=== PATIENT | female | born 1955 | race Caucasian/White ===

== ENCOUNTER 2023-05-31 07:50 | Day surgery (SDC) | payer MEDICARE, MEDICAID ==
[~2023-05-31] VITALS: Ht 165.1 cm; Wt 74.8 kg
[2023-05-31] MEDS ORDERED: SIMETHICONE 40 MG/0.6 ML ML ONE (08:10)
[2023-05-31] MEDS ORDERED: MEPERIDINE 100 MG INJ. 100 MG/ML VIAL ONE (08:11)
[2023-05-31] MEDS ORDERED: MIDAZOLAM HCL 5 MG/5 ML VIAL ONE (08:11)
[2023-05-31 08:21] VITALS: O2SAT 94
[2023-05-31 10:45] VITALS: BP_SYST 107; PULSE 75; RESP 16
== END 2023-05-31 10:33 | disposition home or self-care (01) ==
LOC: SMU 07:50 → SDS 07:50
PROVIDERS: ATTEND Internal Medicine Gastroenterology
DX: R13.10 Dysphagia, unspecified (principal); K29.50 Unspecified chronic gastritis without bleeding; K21.00 Gastro-esophageal reflux disease with esophagitis, without bleeding; J44.9 Chronic obstructive pulmonary disease, unspecified; E78.5 Hyperlipidemia, unspecified; K58.9 Irritable bowel syndrome, unspecified; M19.90 Unspecified osteoarthritis, unspecified site; Z79.899 Other long term (current) drug therapy
CPT/HCPCS: 43248; 43239; 87081; 36415; 88305; 88312; 88313; 99152; G0378; J2250; J2175; C1769

== ENCOUNTER 2023-07-03 07:49 | Day surgery (SDC) | payer MEDICARE, MEDICAID ==
[~2023-07-03] VITALS: Ht 165.1 cm; Wt 74.8 kg
[2023-07-03] MEDS ORDERED: MIDAZOLAM HCL 5 MG/5 ML VIAL ONE (10:49)
[2023-07-03] MEDS ORDERED: MEPERIDINE 100 MG INJ. 100 MG/ML VIAL ONE (10:49)
[2023-07-03 12:34] VITALS: BP_SYST 121; PULSE 65; RESP 16; TEMP 97.5; O2SAT 93
== END 2023-07-03 12:20 | disposition home or self-care (01) ==
LOC: SMU 07:49 → SDS 07:49
PROVIDERS: ATTEND Internal Medicine Gastroenterology
DX: R19.4 Change in bowel habit (principal); D12.2 Benign neoplasm of ascending colon; D12.3 Benign neoplasm of transverse colon; D12.5 Benign neoplasm of sigmoid colon; K62.1 Rectal polyp; K57.30 Diverticulosis of large intestine without perforation or abscess without bleeding; K64.8 Other hemorrhoids; J45.909 Unspecified asthma, uncomplicated; E78.5 Hyperlipidemia, unspecified; M19.90 Unspecified osteoarthritis, unspecified site; K58.9 Irritable bowel syndrome, unspecified; Z88.1 Allergy status to other antibiotic agents; Z79.82 Long term (current) use of aspirin; Z79.899 Other long term (current) drug therapy; Z98.890 Other specified postprocedural states
CPT/HCPCS: 45380; 45381; 45385; 99152; 88305; 99153; G0378; J2250; J2175; C1889; 45382